=== PATIENT | female | born 1930 | race Caucasian/White ===

== ENCOUNTER → 2016-12-19 | Outpatient (CLI) | payer OTHER, BC ==
[~2016-12-19] MED LIST: ADULT LOW DOSE81 MG PO; ALOE VERA PO; BRILINTA90 MG PO; COLACE100 MG PO; COZAAR 50 MG TA50 M2 PO; FISH OIL 1,0001 EAC5 PO; FISHOIL; LIPITOR 20 MG T20 M1 PO; LOPRESSOR25 PO; MULTIVITAMINS; PEPCID AC20 M1 PO; PRILOSEC40 MG PO; PROCARDIA XL60 MG PO; VITAMIN E600 UNIT PO
== END ==
LOC: NUC 07:02
DX: I25.10 Atherosclerotic heart disease of native coronary artery without angina pectoris (principal)

== ENCOUNTER → 2017-06-19 | Outpatient (CLI) | payer OTHER, BC ==
--- NOTE | ~2017-06-19 | 2DMMODE ---
[facility] [address] [facility] [place] [facility] [place] [address] 2 D/M-MODE ECHOCARDIOGRAM Name: PAULINA CHAVEZ EVELINE Room #: REG [facility]#: [id number] Admission: 06/19/17 Attend Phys: Jairo Story MD Discharge: Date of : 28 Date of Service: 06/19/17 1407 Report #: [id number] THIS REPORT FOR: //name// APPROVED REPORT Study performed: 06/19/2017 13:09:58 EXAM: Comprehensive 2D, Doppler, and color-flow Echocardiogram Patient Location: Out-Patient Status: routine BSA: 1.78 HR: 80 bpm BP: 198/112 mmHg Rhythm: NSR Other Information Study Quality: Adequate Indications CAD Hx: [place], stent 2D Dimensions RVDd: 26.41 mm LVEF(%): 80.97 (>50%) IVSd: 10.89 (7-11mm) LVOT Diam: 20.00 (18-24mm) LVDd: 47.06 mm PWd: 10.14 (7-11mm) Ascending Ao: 33.54 (22-36mm) LVDs: 23.70 (25-40mm) Aortic Root: 29.37 mm Chance's LVEF: 80.97 % Volumes Left Atrial Volume (Systole) Single Plane 4CH: 43.38 mL Single Plane 2CH: 35.18 mL LA ESV Index: 23.00 mL/m2 Aortic Valve AoV Peak Quoc.: 1.92 m/s AO Peak Gr.: 14.81 mmHg LVOT Max P.61 mmHg AO Mean Gr.: 8.27 mmHg AO V2 Mean: 1.39 m/s LVOT Max V: 1.07 m/s AO V2 VTI: 39.54 cm ANASTASIYA Vmax: 1.75 cm2 [facility] [employer] [place] [address] 2 D/M-MODE ECHOCARDIOGRAM Name: PAULINA CHAVEZ EVELINE Room #: REG [facility].#: [id number] Admission: 06/19/17 Attend Phys: Jairo Story MD Discharge: Date of : 28 Date of Service: 06/19/17 1407 Report #: [id number] Mitral Valve E/A Ratio: 0.9 MV Decel. Time: 194.90 ms MV E Max Quoc.: 1.11 m/s MV A Quoc.: 1.27 m/s MV PHT: 56.52 ms IVRT: 96.89 ms Pulmonary Valve PV Peak Quoc.: 0.76 m/s PV Peak Gr.: 2.30 mmHg Pulmonary Vein P Vein S: 0.83 m/s P Vein A: 0.35 m/s P Vein D: 0.50 m/s P Vein A Dur.: 96.9 msec P Vein S/D Ratio: 1.66 Tricuspid Valve TR Peak Quoc.: 2.97 m/s RAP Estimate: 5.00 mmHg TR Peak Gr.: 35.35 mmHg PA Pressure: 40.00 mmHg Left Ventricle The left ventricle is normal size. There is normal LV segmental wall motion. Mild basal septal hypertrophy is present. The left ventricular systolic function is normal. LVEF is 60-65%. Mild diastolic dysfunction is present (impaired relaxation pattern). Right Ventricle The right ventricle is normal size. The right ventricular systolic function is normal. Atria The left atrium size is normal. The right atrium size is normal. Aortic Valve Aortic valve is calcified. No aortic regurgitation is present. Borderline mild aortic stenosis. Mitral Valve The mitral valve is normal in structure. Mild to moderate mitral annular calcification. Mild to moderate mitral regurgitation. Tricuspid Valve [address] [address] 2 D/M-MODE ECHOCARDIOGRAM Name: PAULINA CHAVEZ EVELINE Room #: REG [facility]#: [id number] Admission: 06/19/17 Attend Phys: Jairo Story MD Discharge: Date of : 28 Date of Service: 06/19/17 1407 Report #: [id number] The tricuspid valve is normal in structure. Mild to moderate tricuspid regurgitation. Estimated PAP is 40mmHg. Pulmonic Valve The pulmonary valve is normal in structure. Trace pulmonic regurgitation. Great Vessels The aortic root is normal in size. The ascending aorta is normal in size. IVC is normal in size and collapses >50% with inspiration. Pericardium There is no pericardial effusion. <Conclusion> The left ventricle is normal size. The left ventricular systolic function is normal. Mild diastolic dysfunction is present (impaired relaxation pattern). The right ventricle is normal size. The left atrium size is normal. Borderline mild aortic stenosis. Mild to moderate mitral regurgitation. Mild to moderate tricuspid regurgitation. Estimated PAP is 40mmHg. <ELECTRONICALLY SIGNED> By: Jairo Story MD 06/19/171406 06 06 Jairo Story MD /INF
== END ==
LOC: CV 11:51
DX: I25.10 Atherosclerotic heart disease of native coronary artery without angina pectoris (principal)

== ENCOUNTER 2018-05-29 15:05 | Emergency (ER) | payer OTHER, BC ==
[~2018-05-29] VITALS: Ht 160 cm; Wt 77.1 kg
[2018-05-29] MEDS ORDERED: ALTACE10 MG PO (15:11)
[2018-05-29] MEDS ORDERED: NORVASC5 MG PO (15:11)
[2018-05-29 16:33] VITALS: BP 167/97
[2018-06-03] MEDS ORDERED: VITAMIN D31000 UNI2 PO (10:42)
== END 2018-05-29 18:29 | disposition home or self-care (01) ==
LOC: ER 15:05
DX: I10 Essential (primary) hypertension (principal); K21.9 Gastro-esophageal reflux disease without esophagitis; Z88.0 Allergy status to penicillin; S52.022A Displaced fracture of olecranon process without intraarticular extension of left ulna, initial encounter for closed fracture; W19.XXXA Unspecified fall, initial encounter; Y93.89 Activity, other specified; Y92.89 Other specified places as the place of occurrence of the external cause; Y99.8 Other external cause status

== ENCOUNTER → 2018-08-27 | Outpatient (CLI) | payer OTHER, BC ==
[~2018-08-27] MED LIST changes: +ALTACE10 MG PO; +NORVASC5 MG PO; +VITAMIN D31000 UNI2 PO
--- NOTE | ~2018-08-27 | 2DMMODE ---
[facility] [address] [place] [address] 2 D/M-MODE ECHOCARDIOGRAM Name: PAULINA CHAVEZ EVELINE Room #: REG [facility]#: [id number] Admission: 08/27/18 Attend Phys: Jairo Story MD Discharge: Date of : 28 Date of Service: 08/27/18 1205 Report #: [id number] THIS REPORT FOR: //name// APPROVED REPORT Study performed: 08/27/2018 11:08:07 EXAM: Comprehensive 2D, Doppler, and color-flow Echocardiogram Patient Location: Out-Patient Status: routine BSA: 1.81 HR: 90 bpm BP: 158/78 mmHg Rhythm: NSR Other Information Study Quality: Adequate Indications CAD Hypertension/HDD 2D Dimensions RVDd: 33.90 mm IVSd: 14.25 (7-11mm) LVOT Diam: 19.55 (18-24mm) LVDd: 35.94 mm PWd: 10.85 (7-11mm) Ascending Ao: 32.76 (22-36mm) LVDs: 22.87 (25-40mm) Aortic Root: 28.23 mm IVC: 12.00 mm Volumes Left Atrial Volume (Systole) Single Plane 4CH: 31.34 mL Single Plane 2CH: 21.06 mL LA ESV Index: 15.00 mL/m2 Aortic Valve AoV Peak Quoc.: 2.11 m/s AO Peak Gr.: 17.80 mmHg LVOT Max P.63 mmHg AO Mean Gr.: 9.22 mmHg LVOT Mean P.34 mmHg AO V2 Mean: 1.40 m/s LVOT Max V: 1.18 m/s AO V2 VTI: 37.39 cm LVOT Mean V: 0.66 m/s ANASTASIYA (VTI): 2.52 cm2 LVOT V1 VTI: 31.42 cm ANASTASIYA Vmax: 1.68 cm2 SV (LVOT): 94.31 mL [facility] [place] [address] 2 D/M-MODE ECHOCARDIOGRAM Name: PAULINA CHAVEZ EVELINE Room #: REG [facility]#: [id number] Admission: 08/27/18 Attend Phys: Jairo Story MD Discharge: Date of : 28 Date of Service: 08/27/18 1205 Report #: [id number] Mitral Valve E/A Ratio: 0.7 MV Decel. Time: 229.76 ms MV E Max Quoc.: 0.82 m/s MV A Quoc.: 1.19 m/s MV PHT: 66.63 ms IVRT: 110.73 ms Pulmonary Valve PV Peak Quoc.: 0.88 m/s PV Peak Gr.: 3.10 mmHg Pulmonary Vein P Vein S: 0.85 m/s P Vein A: 0.33 m/s P Vein D: 0.34 m/s P Vein A Dur.: 90.0 msec P Vein S/D Ratio: 2.50 Tricuspid Valve TR Peak Quoc.: 2.62 m/s RAP Estimate: 5.00 mmHg TR Peak Gr.: 27.45 mmHg PA Pressure: 33.00 mmHg Left Ventricle The left ventricle is normal size. Mild basal septal hypertrophy is present. The left ventricular systolic function is normal. The left ventricular ejection fraction is within the normal range. LVEF is 65%. Mild diastolic dysfunction is present (impaired relaxation pattern). Right Ventricle The right ventricle is normal size. The right ventricular systolic function is normal. Atria The left atrium size is normal. The right atrium size is normal. Aortic Valve Aortic valve is calcified. No aortic regurgitation is present. Mild aortic stenosis with a max pressure gradient of 18 mmHg and a mean pressure gradient of 9.2 mmHg. Calculated aortic valve area of 1.7 cm2. Mitral Valve Moderate mitral annular calcification. Mild mitral regurgitation. No evidence [place] [address] 2 D/M-MODE ECHOCARDIOGRAM Name: PAULINA CHAVEZ EVELINE Room #: REG [facility].R.#: [id number] Admission: 08/27/18 Attend Phys: Jairo Story MD Discharge: Date of : 28 Date of Service: 08/27/18 1205 Report #: [id number] Tricuspid Valve The tricuspid valve is normal in structure. Trace tricuspid regurgitation. PAP is estimated at 33 mmHg. Pulmonic Valve Pulmonic valve is not well visualized. Great Vessels The aortic root is normal in size. IVC is normal in size and collapses >50% with inspiration. Pericardium There is no pericardial effusion. <Conclusion> The left ventricle is normal size. The left ventricular systolic function is normal. Mild diastolic dysfunction is present (impaired relaxation pattern). The right ventricle is normal size. The left atrium size is normal. Mild aortic stenosis with a max pressure gradient of 18 mmHg and a mean pressure gradient of 9.2 mmHg. Calculated aortic valve area of 1.7 cm2. Moderate mitral annular calcification. Mild mitral regurgitation. Trace tricuspid regurgitation. PAP is estimated at 33 mmHg. <ELECTRONICALLY SIGNED> By: Jairo Story MD 08/27/18 1205 120 04 Jairo Story MD /INF
== END ==
LOC: EDSTATUS 10:20 → CV 10:43
DX: I34.0 Nonrheumatic mitral (valve) insufficiency (principal); I35.0 Nonrheumatic aortic (valve) stenosis; I25.10 Atherosclerotic heart disease of native coronary artery without angina pectoris